=== PATIENT | female | born 1990 | race American Indian/Alaskan Native ===

== ENCOUNTER 2019-09-14 11:49 | Emergency (ER) | payer OTHER ==
[2019-09-14 13:33] VITALS: BP 106/68
--- NOTE | 2019-09-14 13:36 | Event Note ---
ED Screening Note Date of service: 09/14/19 Time: 13:34 ED Screening Note: 28 y o f home preg test positive presents with vaginal bleed with heavy LMP: 2/ unsure This initial assessment/diagnostic orders/clinical plan/treatment(s) is/are subject to change based on patients health status, clinical progression and re- assessment by fellow clinical providers in the ED. Further treatment and workup at subsequent clinical providers discretion. Patient/guardian urged not to elope from the ED as their condition may be serious if not clinically assessed and managed. Initial orders include: labs , ua , upt acc veal
[2019-09-14 14:30] LABS: Basophils # (Auto) 0.1 K/mm3 (0.0-0.1); Basophils % (Auto) 0.6 % (0.0-1.8); Eosinophils # (Auto) 0.3 K/mm3 (0.0-0.4); Eosinophils % (Auto) 3.8 % (0.0-4.3); Hematocrit 33.7 % (30.3-42.9); Hemoglobin 10.7 gm/dl (10.1-14.3); Lymphocytes % (Auto) 23.2 % (13.4-35.0); Mean Corpuscular HGB Conc 32 % (30-34); Mean Corpuscular Volume 73 fl (79-97); Monocytes # (Auto) 0.6 K/mm3 (0.0-0.8); Monocytes % (Auto) 7.4 % (0.0-7.3); Platelet Count 223 K/mm3 (140-440); Red Cell Distribution Width 14.6 % (13.2-15.2)
[2019-09-14 16:24] LABS: Bacteria,Urine 3+ /HPF (Negative); Bilirubin,Urine NEG (Negative); Blood,Urine MOD (Negative); Color,Urine Yellow (Yellow); Mucus,Urine 2+ /HPF; Protein,Urine <15 mg/dL mg/dL (Negative); Urobilinogen,Urine < 2.0 mg/dL (<2.0)
--- NOTE | 2019-09-14 19:00 | Emergency Department Report ---
HPI - General Chief Complaint: Abdominal Pain Time Seen by Provider: 09/14/19 18:11 - HPI HPI: 28-year-old -Citizen Of [place] female presents to the emergency department with the concern of a possible miscarriage. The patient found out she was from a home test and did not have any confirmation at a doctor's office. Her last menstrual cycle was sometime in July. With this she is G1, P0. Starting Friday, 2 days ago, the patient has been having some moderate vaginal bleeding and some pelvic cramping. She has not taken anything for symptoms prior to presentation. No [facility]. ED Past Medical Hx - Past Medical History Previous Medical History?: No - Surgical History Past Surgical History?: No - Social History Smoking Status: Current Every Day Smoker Substance Use Type: None - Medications Home Medications: Home Medications Medication Instructions Recorded Confirmed Last Taken Type Ibuprofen [Motrin] 600 mg PO Q8H PRN #40 tablet 03/12/15 Unknown Rx metroNIDAZOLE [Flagyl TAB] 500 mg PO Q12HR #20 tab 03/12/15 Unknown Rx traMADoL [Ultram] 50 mg PO Q6HR PRN #10 tablet 05/25/16 Unknown Rx Vit-Fe Fumar-FA [ 1 tab PO QDAY #30 tablet 09/14/19 Unknown Rx Vitamin] ED Review of Systems ROS: Stated complaint: MISCARRGE Other details as noted in HPI Comment: All other systems reviewed and negative Constitutional: denies: chills, fever Eyes: denies: eye pain, vision change ENT: denies: ear pain, throat pain Respiratory: denies: cough, shortness of breath Cardiovascular: denies: chest pain, palpitations Gastrointestinal: denies: abdominal pain, vomiting Genitourinary: other (vaginal bleeding, pelvic cramping). denies: dysuria Musculoskeletal: denies: back pain, arthralgia Skin: denies: rash, lesions Neurological: denies: headache, weakness Physical Exam - Physical Exam Vital Signs: Vital Signs 09/14/19 13:32 Temperature 98.2 F Pulse Rate 74 Respiratory 18 Rate Blood Pressure 106/68 O2 Sat by Pulse 98 Oximetry Physical Exam: GENERAL: The patient is well-developed well-nourished. HENT: Normocephalic. Atraumatic. Patient has moist mucous membranes. EYES: Extraocular motions are intact. NECK: Supple. Trachea is midline. CHEST/LUNGS: Clear to auscultation. There is no respiratory distress noted. HEART/CARDIOVASCULAR: Regular. There is no tachycardia. ABDOMEN: Abdomen is soft, nontender. Patient has normal bowel sounds. There is no abdominal distention. SKIN: Skin is warm and dry. NEURO: The patient is awake, alert, and oriented. The patient is cooperative. The patient has no focal neurologic deficits. Normal speech. MUSCULOSKELETAL: There is no tenderness or deformity. There is no evidence of acute injury. ED Course Vital Signs 09/14/19 13:32 Temperature 98.2 F Pulse Rate 74 Respiratory 18 Rate Blood Pressure 106/68 O2 Sat by Pulse 98 Oximetry ED Medical Decision Making - Lab Data Result diagrams: 09/14/19 14:05 - Radiology Data Radiology results: report reviewed Obstetrical ultrasound, transvaginal ultrasound with Doppler INDICATION: Clinical history of miscarriage question retained products of conception now with pelvic pain TECHNIQUE: Real-time grayscale and Doppler imaging obtained. FINDINGS: No intrauterine is identified. Endometrial complex measures about 7 mm. Both ovaries contain follicles. No significant free pelvic fluid is appreciated. There is Doppler flow within both ovaries. There is a 1.4 cm mildly complex cyst arising from the left ovary. IMPRESSION: The endometrial thickness is within normal limits only measuring 7 mm. No intrauterine is appr eciated. No abnormal Doppler flow is identified along the endometrial canal. - Medical Decision Making This patient presents to the emergency department with a complaint of a 2-day history of some pelvic cramping and some vaginal bleeding. She previously had a home positive test. The beta hCG is about 780. No significant anemia. A transvaginal/obstetric ultrasound was done that shows a thickened endometrium without signs of intrauterine . This is most likely consistent with a spontaneous miscarriage. However the patient has been i nstructed to follow-up with either an [facility] or return to the emergency department for a repeat hormone level and possibly ultrasound. If the hormone level is increasing, this may be a very early . If the hormone level is decreasing, this was a miscarriage. She was placed on vitamins and given multiple referrals for [facility]. She will return to the ER with any worsening of her symptoms or any acute distress. She understands and agrees to the plan. - Differential Diagnosis , threatened miscarriage, spontaneous miscarriage, fibroids Critical Care Time: No Critical care attestation.: If time is entered above; I have spent that time in minutes in the direct care of this critically ill patient, excluding procedure time. ED Disposition Clinical Impression: Threatened Disposition: [id number] TO HOME OR SELFCARE Is pt being admited?: No Condition: Stable Instructions: Threatened Miscarriage (ED) Additional Instructions: Please follow-up with a [facility] in the next few days. Your hormone, beta hCG, today was 778. You will need to get a repeat hormone level in about 4 to 5 days, and possibly a repeat ultrasound. If the hormone level is increasing, then potentially this is just a very early . If the hormone level is decreasing, you have most likely had a miscarriage. Return to the emergency department immediately with any increased vaginal bleeding, increased pelvic pain, or with any acute distress. Prescriptions: Vit-Fe Fumar-FA [ Vitamin] 1 tab PO QDAY #30 tablet Referrals: PRIMARY CARE [Primary Care Provider] - 3-5 Days [facility] [Provider Group] - 3-5 Days [facility] [Provider Group] - 3-5 Days [facility] [Provider Group] - 3-5 Days Time of Disposition: 21:30
--- NOTE | 2019-09-14 21:13 | Ultrasound Report ---
Obstetrical ultrasound, transvaginal ultrasound with Doppler INDICATION: Clinical history of miscarriage question retained products of conception now with pelvic pain TECHNIQUE: Real-time grayscale and Doppler imaging obtained. FINDINGS: No intrauterine is identified. Endometrial complex measures about 7 mm. Both ovar ies contain follicles. No significant free pelvic fluid is appreciated. There is Doppler flow within both ovaries. There is a 1.4 cm mildly complex cyst arising from the left ovary. IMPRESSION: The endometrial thickness is within normal limits only measuring 7 mm. No intrauterine pr egnancy is appreciated. No abnormal Doppler flow is identified along the endometrial canal. Signer Name: Kamar Townsend MD Signed: 09/14/2019 9:09 PM Workstation Name: [id number]
== END 2019-09-14 22:17 | disposition home or self-care (01) ==
LOC: ED 11:49
DX: O20.0 Threatened abortion (principal); O99.331 Smoking (tobacco) complicating pregnancy, first trimester; Z3A.01 Less than 8 weeks gestation of pregnancy; Z79.899 Other long term (current) drug therapy
CPT/HCPCS: 36415; 76801; 76817; 81001; 84702; 85025; 86900; 86901; 87076; 87086; 87186; 99284